=== PATIENT | male | born 2000 | race Caucasian/White ===

== ENCOUNTER 2019-07-22 18:40 | Emergency (ER) | payer OTHER ==
--- NOTE | 2019-07-22 18:43 | UC ---
Throat Pain/Nasal Keny HPI - HPI Summary HPI Summary: 19 yo male presents with sinus pain/pressure/congestion, post nasal drip, and dry cough for the last 7-10 days. He has been taking mucinex DM and using flonase with initial relief at first, but no longer helping. Denies fever, chills, sore throat, SOB, rash. - History of Current Complaint Stated Complaint: POSS SINUS INFECTION Time Seen by Provider: 07/22/19 18:42 Hx Obtained From: Patient Onset/Duration: Gradual Onset Severity: Moderate Pain Intensity: 6 Pain Scale Used: 0-10 Numeric - Allergies/Home Medications Allergies/Adverse Reactions: Allergies Allergy/AdvReac Type Severity Reaction Status Date / Time No Known Allergies Allergy Verified 07/22/19 18:55 PMH/Surg Hx/FS Hx/Imm Hx - Additional Past Medical History Additional PMH: None - Surgical History Surgical History: None - Family History Known Family History: Positive: None - Social History Occupation: Student Lives: With Family Alcohol Use: None Substance Use Type: None Smoking Status (MU): Never Smoked Tobacco Review of Systems All Other Systems Reviewed And Are Negative: No Constitutional: Positive: Negative Skin: Positive: Negative Eyes: Positive: Negative ENT: Positive: Nasal Discharge, Sinus Congestion, Sinus Pain/Tenderness Respiratory: Positive: Cough Cardiovascular: Positive: Negative Gastrointestinal: Positive: Negative Neurological: Positive: Negative Psychological: Positive: Negative Physical Exam - Summary Physical Exam Summary: GENERAL: NAD. WDWN. No pain distress. SKIN: No rashes, sores, lesions, or open wounds. HEENT: Head: AT/NC Eyes: EOM intact. Conjunctiva clear without inflammation or discharge. Ears: Hearing grossly normal. TMs intact, no bulging, erythema, or edema. Nose: Nasal mucosa moderately swollen and erythematous without discharge. TTP maxillary and frontal sinus. Positive post nasal drip Throat: Posterior oropharynx without exudates, erythema, or tonsillar enlargement. Uvula midline. NECK: Supple. Nontender. No lymphadenopathy. CHEST: CTAB. No r/r/w. No accessory muscle use. Breathing comfortably and in no distress. CV: RRR. Without m/r/g. Pulses intact. NEURO: Alert. PSYCH: Age appropriate behavior. Triage Information Reviewed: Yes Vital Signs: Vital Signs: Temp Pulse Resp BP Pulse Ox 98.8 F 87 16 117/80 98 07/22/19 18:49 07/22/19 18:49 07/22/19 18:49 07/22/19 18:49 07/22/19 18:49 Vital Signs Reviewed: Yes Throat Pain/Nasal Course/Dx - Course Course Of Treatment: Sinusitis - Differential Dx/Diagnosis Provider Diagnosis: Sinusitis Discharge ED - Sign-Out/Discharge Documenting (check all that apply): Patient Departure All imaging exams completed and their final reports reviewed: No Studies - Discharge Plan Condition: Stable Disposition: HOME Prescriptions: Amoxicillin/Clavulanate TAB* [Augmentin TAB 875*] 875 mg PO BID #14 tab Patient Education Materials: Sinusitis (ED) Referrals: No Primary Care Phys,NOPCP [Primary Care Provider] - Additional Instructions: If you develop a fever, shortness of breath, chest pain, new or worsening symptoms - please call your PCP or go to the ED immediately. Your blood pressure was high at todays visit. Please see your primary provider within 4 weeks for recheck and re-evaluation. - Billing Disposition and Condition Condition: STABLE Disposition: Home
[2019-07-22 18:55] VITALS: BP 117/80
[2019-07-22] MEDS ORDERED: Amoxicillin/Clavulanate TAB* 875 MG PO ONE (19:01)
== END 2019-07-22 19:05 | disposition home or self-care (01) ==
LOC: UCEAST 18:40
DX: J32.9 Chronic sinusitis, unspecified (principal)
CPT/HCPCS: 99212; A9270-GY; G0463

== ENCOUNTER 2019-08-15 17:37 | Emergency (ER) | payer OTHER ==
[2019-08-15 17:56] VITALS: BP 121/73
--- NOTE | 2019-08-15 18:04 | UC ---
Throat Pain/Nasal Keny HPI - HPI Summary HPI Summary: 19 yo male presents with post nasal drip and cough. I saw him about a month ago for a sinus infection and he was treated with Augmentin - he states his sinus symptoms improved, but he is still having post nasal drip with a dry cough that is irritating his throat at bedtime. He has been taking mucinex with little relief. Denies fever, chills, sinus pain, sore throat, SOB, rash, n/v - History of Current Complaint Chief Complaint: UCRespiratory Stated Complaint: SINUS COMPLAINT Time Seen by Provider: 08/15/19 18:04 Hx Obtained From: Patient Onset/Duration: Gradual Onset Severity: Mild Pain Intensity: 2 Pain Scale Used: 0-10 Numeric Cough: Nonproductive - Allergies/Home Medications Allergies/Adverse Reactions: Allergies Allergy/AdvReac Type Severity Reaction Status Date / Time No Known Allergies Allergy Verified 08/15/19 17:57 Home Medications: Home Medications Fluticasone NASAL SPRAY 50MCG* [Flonase NASAL SPRAY 50MCG*] 1 spray INH BEDTIME 08/15/19 [History Confirmed 08/15/19] PMH/Surg Hx/FS Hx/Imm Hx - Additional Past Medical History Additional PMH: None - Surgical History Surgical History: None Surgery Procedure, Year, and Place: [place] teeth - Family History Known Family History: Positive: None - Social History Occupation: Student Alcohol Use: None Substance Use Type: None Smoking Status (MU): Never Smoked Tobacco Review of Systems All Other Systems Reviewed And Are Negative: No Constitutional: Positive: Negative Skin: Positive: Negative Eyes: Positive: Negative ENT: Positive: Other - Post nasal drip Respiratory: Positive: Cough Cardiovascular: Positive: Negative Gastrointestinal: Positive: Negative Neurological: Positive: Negative Psychological: Positive: Negative Physical Exam - Summary Physical Exam Summary: GENERAL: NAD. WDWN. No pain distress. SKIN: No rashes, sores, lesions, or open wounds. HEENT: Head: AT/NC Eyes: EOM intact. Conjunctiva clear without inflammation or discharge. Ears: Hearing grossly normal. TMs intact, no bulging, erythema, or edema. Nose: Nasal mucosa pink and moist. NTTP maxillary and frontal sinus. Throat: Posterior oropharynx without exudates, erythema, or tonsillar enlargement. Uvula midline. Positive post nasal drip NECK: Supple. Nontender. No lymphadenopathy. CHEST: CTAB. No accessory muscle use. Breathing comfortably and in no distress. CV: RRR. Without m/r/g. Pulses intact. Cap refill <2seconds NEURO: Alert. PSYCH: Age appropriate behavior. Triage Information Reviewed: Yes Vital Signs: Initial Vital Signs Temp 98.7 F 08/15/19 17:52 Pulse 70 08/15/19 17:52 Resp 16 08/15/19 17:52 BP 121/73 08/15/19 17:52 Pulse Ox 99 08/15/19 17:52 Vital Signs Reviewed: Yes Throat Pain/Nasal Course/Dx - Course Course Of Treatment: Suspect irritant cough and post nasal drip - Differential Dx/Diagnosis Provider Diagnosis: Cough, Post-nasal drip Discharge ED - Sign-Out/Discharge Documenting (check all that apply): Patient Departure All imaging exams completed and their final reports reviewed: No Studies - Discharge Plan Condition: Stable Disposition: HOME Prescriptions: Benzonatate CAP* [Tessalon 100 MG CAP*] 100 mg PO TID PRN #21 cap PRN Reason: Cough Codeine Phosphate/Guaifenesin [Guaifen-Codeine 100-10 mg/5 ml] 5 ml PO BEDTIME PRN #35 ml MDD 5mL PRN Reason: Cough Loratadine [Claritin] 10 mg PO DAILY #14 tablet Patient Education Materials: Acute Cough (ED) Referrals: No Primary Care Phys,NOPCP [Primary Care Provider] - Additional Instructions: If you develop a fever, shortness of breath, chest pain, new or worsening symptoms - please call your PCP or go to the ED immediately. - Billing Disposition and Condition Condition: STABLE Disposition: Home
== END 2019-08-15 18:25 | disposition home or self-care (01) ==
LOC: UCEAST 17:37
DX: R05 Cough (principal); R09.82 Postnasal drip; R09.89 Other specified symptoms and signs involving the circulatory and respiratory systems
CPT/HCPCS: 99212; G0463

== ENCOUNTER 2019-10-26 10:59 | Emergency (ER) | payer OTHER ==
[2019-10-26 11:06] VITALS: BP 109/60
--- NOTE | 2019-10-26 11:22 | UC ---
Skin Complaint HPI - HPI Summary HPI Summary: 19-year-old male presents with a painful cyst to the right side of his neck. States he has had the cyst for several months now but over the last 2 days it has become tender and red. Has not increased in size. Denies fever, chills, or drainage. - History of Current Complaint Chief Complaint: UCSkin Time Seen by Provider: 10/26/19 11:20 Stated Complaint: SOFT TISSUE COMPLAINT Hx Obtained From: Patient Pain Intensity: 6 - Allergy/Home Medications Allergies/Adverse Reactions: Allergies Allergy/AdvReac Type Severity Reaction Status Date / Time No Known Allergies Allergy Verified 10/26/19 11:06 PMH/Surg Hx/FS Hx/Imm Hx Previously Healthy: Yes - Denies significant PMH - Surgical History Surgical History: Yes Surgery Procedure, Year, and Place: [place] teeth - Family History Known Family History: Positive: Non-Contributory - Social History Occupation: Student Lives: Dormitory/Roommates Alcohol Use: None Substance Use Type: None Smoking Status (MU): Never Smoked Tobacco Review of Systems All Other Systems Reviewed And Are Negative: Yes Constitutional: Negative: Fever, Chills Skin: Positive: Other - See HPI Respiratory: Positive: Negative Cardiovascular: Positive: Negative Gastrointestinal: Positive: Negative Genitourinary: Positive: Negative Musculoskeletal: Positive: Negative Neurological: Positive: Negative Is Patient Immunocompromised?: No Physical Exam - Summary Physical Exam Summary: GENERAL APPEARANCE: Well developed, well nourished, alert and cooperative, and appears to be in no acute distress. NECK: Neck supple, non-tender without lymphadenopathy. 2 cm well circumscribed subdermal cyst with mild erythema to the right lateral neck. No induration or fluctuance noted. CARDIAC: Normal S1 and S2. No S3, S4 or murmurs. Rhythm is regular. There is no peripheral edema, cyanosis or pallor. Extremities are warm and well perfused. Capillary refill is less than 2 seconds. Peripheral pulses intact. LUNGS: Clear to auscultation without rales, rhonchi, wheezing or diminished breath sounds. ABDOMEN: Positive bowel sounds. Soft, nondistended, nontender. No guarding or rebound. No masses or hepatosplenomegally. MUSKULOSKELETAL: ROM intact to all extremities. No joint erythema or tenderness. Normal muscular development. Normal gait. SKIN: Skin normal color, texture and turgor. Triage Information Reviewed: Yes Vital Signs: Initial Vital Signs Temp 97.2 F 10/26/19 11:04 Pulse 65 10/26/19 11:04 Resp 16 10/26/19 11:04 BP 109/60 10/26/19 11:04 Pulse Ox 99 10/26/19 11:04 Vital Signs Reviewed: Yes Course/Dx - Course Course Of Treatment: 19-year-old male presents with a painful cyst to the right side of his neck. States he has had the cyst for several months now but over the last 2 days it has become tender and red. Has not increased in size. Denies fever, chills, or drainage. Afebrile. Vital signs stable. Patient had a 2 cm well circumscribed subdermal cyst with mild erythema to the right lateral neck. No induration or fluctuance noted. Remainder of exam was unremarkable. Discussed with the patient that he likely has an infected sebaceous cyst. Since there is no fluctuance noted at this time I am not recommending drainage of the infection and instead recommends simply treating with cephalexin 500 mg 3 times a day 7 days. He is to follow-up with his primary care provider at home or follow-up with general surgery here in 5-7 days for reevaluation of the cyst and to discuss possible removal of the cyst at that time. Anticipatory guidance warning symptoms were reviewed with the patient. Verbalizes understanding and agrees with plan of care. - Differential Diagnoses - Skin Complaint Differential Diagnoses: Abscess, Cellulitis, Local Allergic Reaction, MRSA - Diagnoses Provider Diagnosis: Infected sebaceous cyst Discharge ED - Sign-Out/Discharge Documenting (check all that apply): Patient Departure All imaging exams completed and their final reports reviewed: No Studies - Discharge Plan Condition: Stable Disposition: HOME Prescriptions: cephALEXin [Keflex] 500 mg PO TID #21 capsule Patient Education Materials: Cyst (ED) Referrals: No Primary Care Phys,NOPCP [Primary Care Provider] - Joshua Rodrigues MD [Medical Doctor] - 5 Days (Follow up in 5-7 days for evaluation and treatment. Call for appointment.) Additional Instructions: You have what appears to be a sebaceous cyst that I'm concerned may have become infected. We will start to on an antibiotic to treat for the infection. Be sure to finish the entire course even if feeling better. Start cephalexin 500 mg one capsule every 8 hours for 7 days. Take acetaminophen (Tylenol) or ibuprofen (Advil, Motrin) according to directions as needed for pain. Follow-up with your primary care provider at home or with the general surgeon here in 5-7 days for recheck and evaluation for possible removal of the cyst. Seek immediate medical attention in the emergency room if you develop a fever greater than 100.5 F, have redness that rapidly spreads, increased swelling of the area, severe pain that is not managed with [id number] pain medication , or any worsening of symptoms. - Billing Disposition and Condition Condition: STABLE Disposition: Home
== END 2019-10-26 11:35 | disposition home or self-care (01) ==
LOC: UCEAST 10:59
DX: L72.3 Sebaceous cyst (principal); L08.89 Other specified local infections of the skin and subcutaneous tissue
CPT/HCPCS: 99212; G0463